=== PATIENT | female | born 1975 | race Caucasian/White ===

== ENCOUNTER 2023-06-20 13:28 | Emergency (ER) | payer BC ==
[~2023-06-20] VITALS: Ht 165.1 cm; Wt 80.0 kg
[2023-06-20 13:31] VITALS: TEMP 98.1
[2023-06-20] MEDS ORDERED: Ketorolac 60 MG/2 ML VIAL IM ONE (14:30)
[2023-06-20] MEDS ORDERED: CYANOCOBAL1000 MCG/1 (14:46)
[2023-06-20] MEDS ORDERED: VITAMIN D 50,1.25 MG PO (14:47)
[2023-06-20] MEDS ORDERED: ZOLOFT 100MG100 MG PO (14:47)
[2023-06-20 15:21] VITALS: BP 115/74; PULSE 71
== END 2023-06-20 15:21 | disposition home or self-care (01) ==
LOC: COL.ER 13:28
DX: M25.531 Pain in right wrist (principal)
CPT/HCPCS: J1885